=== PATIENT | male | born 1935 | race Caucasian/White ===

== ENCOUNTER → 2016-08-07 | Day surgery (SDC) | payer MEDICARE ==
[~2016-08-07] MED LIST: AMLO10 PO; ASPI325T PO; ENAL5TAB98 PO; EPINEPHrine HCL (1:10,000) 1 MG/10 ML SYRINGE ONE; FISH1000 PO; GLYB1TAB51 PO; LACTATED RINGER'S 1000 ML INJ 1,000 ML ONE; LIDOCAINE 1%/EPINEPHrine 1:100,000 SOLN 20 ML VIAL ONE; LORA10TA7 PO; MIDAZOLAM HCL 2 MG/2 ML VIAL ONE; NIAS10004 PO; NITROGLYCERIN 0.4 MG SL 25 TABS/BTL SL ONE; OMEP20CA5 PO; PIOG30 PO; PROPOFOL 500 MG/50 ML BTL IV ONE; TAB-TAB PO; Testosterone IM; VANCOMYCIN HCL 1000 MG VIAL ONE; VYTO10TA35 PO; [UNRECOGNIZED DRUG - CODE] PO; ceFAZolin INJ 1,000 MG VIAL ONE
[2016-08-07 12:36] LABS: CKMB 4.4 NG/ML (0.5-3.6)
--- NOTE | 2016-08-07 19:02 | MP ---
cc: ESSENCE AGUILERA DATE OF SURGERY 08/07/16 PREOPERATIVE DIAGNOSIS Infected hematoma left medial calf. POSTOPERATIVE DIAGNOSIS Infected hematoma left medial calf. PROCEDURE Incision, drainage and debridement of infected left calf hematoma. SURGEON Bri Aguilera MD ANESTHESIA Local MAC DESCRIPTION OF PROCEDURE With the patient in the supine position, IV sedation was induced, the left leg prepped with Betadine and draped in a sterile fashion. One gram of Ancef was administered intravenously and following a protocol time-out, the skin and subcutaneous tissue surrounding the necrotic eschar overlying the left mid calf hematoma was infiltrated with 0.5% Marcaine with epinephrine. The necrotic eschar was completely excised. Underlying organized thrombus and zero purulent fluid was thoroughly debrided off, the wound copiously irrigated. Cultures were obtained. The oval-shaped area approximately 3 x 4 cm of anteromedial tibial periosteum was necrosed exposing underlying dry osseous tissues. I telephoned both Dr. Dave Mehta and Dov Hale to discuss the exposed bone and best management options. They recommended Xeroform dressings with vacuum dressing overlying the wound. Thus, the exposed osseous tissue was covered with Xeroform and a vacuum dressing applied overall. It should be noted that the conclusion of procedure, the patient spontaneously developed severe hypotension. The hypotension did not respond to Rios-Synephrine but did respond to IV epinephrine and 100% oxygen Ambu assisted ventilation. 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 His blood pressure stabilized and the substernal discomfort resolved. I telephoned his draw tender, Carlos Espinosa, to discuss the hypo which is likely cardiac related. He had no signs of hypersensitivity reaction and nothing to suggest acute pulmonary embolism of specific etiology. We obtained a postoperative 12-lead EKG which was unchanged from that performed November of 2015. Cardiac enzymes were pending. The patient recovered in the recovery area without problems. He will follow up . MD BEE Arthur/ /4:33 PM /6:48 PM
== END | disposition home or self-care (01) ==
LOC: ESDC 06:53
PROVIDERS: ATTEND Surgery Vascular Surgery
DX: M79.81 Nontraumatic hematoma of soft tissue (principal); B95.2 Enterococcus as the cause of diseases classified elsewhere; B96.4 Proteus (mirabilis) (morganii) as the cause of diseases classified elsewhere
CPT/HCPCS: 00400; 27603; 36415; 82550; 82552; 87070; 87077; 87186; 87205; J0171; J0690; J2250; J3010; J3370; J7120

== ENCOUNTER → 2016-08-17 | Outpatient (CLI) | payer MEDICARE ==
[~2016-08-17] MED LIST changes: -EPINEPHrine HCL (1:10,000) 1 MG/10 ML SYRINGE ONE; -LACTATED RINGER'S 1000 ML INJ 1,000 ML ONE; -LIDOCAINE 1%/EPINEPHrine 1:100,000 SOLN 20 ML VIAL ONE; -MIDAZOLAM HCL 2 MG/2 ML VIAL ONE; -NITROGLYCERIN 0.4 MG SL 25 TABS/BTL SL ONE; -PROPOFOL 500 MG/50 ML BTL IV ONE; -VANCOMYCIN HCL 1000 MG VIAL ONE; -ceFAZolin INJ 1,000 MG VIAL ONE
== END ==
LOC: CLAB 13:25
PROVIDERS: ATTEND Urology
DX: R97.20 Elevated prostate specific antigen [PSA] (principal)
CPT/HCPCS: 36415; 84153

== ENCOUNTER → 2016-08-27 | Day surgery (SDC) | payer MEDICARE ==
[~2016-08-27] MED LIST changes: +ACETAMINOPHEN 1000 MG/100 ML VIAL IV ONE; +BACITRACIN IM FOR SOLN 50,000 UNIT VIAL ONE; +BUPIVACAINE/EPINEPHRINE 0.25% PF 30 ML VIAL ONE; +LACTATED RINGER'S 1000 ML INJ 1,000 ML ONE; +LIDOCAINE 1%/EPINEPHrine 1:100,000 SOLN 20 ML VIAL ONE; +MIDAZOLAM HCL 2 MG/2 ML VIAL ONE; +MINERAL OIL 10 ML VIAL ONE; +NEOMYCIN/POLYMYXIN/BACITRACIN OINT 15 GM TUBE ONE; +ONDANSETRON HCL 4 MG/2 ML VIAL IV PUSH ONE; +PROPOFOL 200 MG/20 ML AMP IV ONE; +SODIUM CHLORIDE 0.9% 20 ML VIAL ONE; +ceFAZolin INJ 1,000 MG VIAL ONE
--- NOTE | 2016-08-27 15:43 | TN ---
cc: DOV HALE M.D. DATE OF SURGERY: 08/27/2016 PREOPERATIVE DIAGNOSIS 1. Open wound with exposed tibial bone located on the left lower extremity. PROCEDURE 1. Debridement of a defect of 6 x 3 cm including the skin, subcutaneous tissue and muscle. 2. Bipedicle flap rotation to cover the defect of 6 x 3 cm reconstruction. 3. Split-thickness skin graft for donor defect of approximately 5 x 3 cm. SURGEON Dov Hale MD PEDIATRIC SPEECH LANGUAGE PATHOLOGIST Jennifer Gagnon MS III ESTIMATED BLOOD LOSS Minimal. ANESTHESIA LMA. I also utilized approximately 60 ccs of 1% lidocaine with epinephrine mixed with 0.25% Marcaine on a 2:1 ratio. DRAINS One 10 mm Reliavac. COMPLICATIONS None. PROCEDURE He was properly consented, marked, properly anesthetized. The skin was sterilized with Betadine solution and sterile draping applied. Pulse lavage was carried out of the area after proper debridement down to viable tissue including the skin, subcutaneous tissue and muscle, including periosteum. The defect is now is 6 x 3 cm. Cultures have been obtained and the bipedicle flap was elevated and rotated into the defect, secured in place utilizing 2-0 Monocryl suture and 2-0 Prolene suture on horizontal, vertical and double [id number] fashion. The donor site was grafted from skin graft obtained from the thigh 13,000th of an inch was properly obtained. The unused skin was returned to the donor site without any difficulties and covered with Xeroform gauze and Hypafix tape. The leg was covered with the donor site with a tie-over dressing utilizing [place] foam and Xeroform gauze, secured with surgical bonny. Everything was covered with Xeroform gauze, Sof-Rol as well as 4x4s and Usman. Good viability of tissue was noted at the end of the case. The patient was awakened, extubated in the operating room and transferred back to postanesthesia care unit in stable condition. No complications were appreciated. The patient tolerated the procedure fairly well. MD LAURIE Sims/LEELEE /2:02 PM /3:25 PM DANIELLA
== END | disposition home or self-care (01) ==
LOC: ESDC 11:07
PROVIDERS: ATTEND Plastic Surgery
DX: S81.802A Unspecified open wound, left lower leg, initial encounter (principal)
CPT/HCPCS: 86403; 87070; 87205; J0131; J0690; J2250; J2405; J3010; J7120

== ENCOUNTER → 2016-10-22 | Outpatient (CLI) | payer MEDICARE ==
[~2016-10-22] MED LIST changes: -ACETAMINOPHEN 1000 MG/100 ML VIAL IV ONE; -BACITRACIN IM FOR SOLN 50,000 UNIT VIAL ONE; -BUPIVACAINE/EPINEPHRINE 0.25% PF 30 ML VIAL ONE; -LACTATED RINGER'S 1000 ML INJ 1,000 ML ONE; -LIDOCAINE 1%/EPINEPHrine 1:100,000 SOLN 20 ML VIAL ONE; -MIDAZOLAM HCL 2 MG/2 ML VIAL ONE; -MINERAL OIL 10 ML VIAL ONE; -NEOMYCIN/POLYMYXIN/BACITRACIN OINT 15 GM TUBE ONE; -ONDANSETRON HCL 4 MG/2 ML VIAL IV PUSH ONE; -PROPOFOL 200 MG/20 ML AMP IV ONE; -SODIUM CHLORIDE 0.9% 20 ML VIAL ONE; -ceFAZolin INJ 1,000 MG VIAL ONE
[2016-10-22 11:16] LABS: HEMATOCRIT 36.2 % (39.0-51.0); MEAN CELL VOLUME 99.1 FL (80.0-100.0); MEAN CORPUSCULAR HEMOGLOBIN 34.9 PG (27.0-34.0); MEAN CORPUSCULAR HGB CONC 35.3 % (32.0-36.0); PLATELET COUNT 176 TH/MM3 (150-450); RED BLOOD COUNT 3.66 MIL/MM3 (4.50-5.90); REVIEW FLAG FINAL; WHITE BLOOD COUNT 5.8 TH/MM3 (4.0-11.0)
[2016-10-22 11:43] LABS: ALKALINE PHOSPHATASE 57 U/L (45-117); ALT (GPT) 20 U/L (12-78); HDL CHOLESTEROL 57.1 MG/DL (40.0-60.0); TOTAL BILIRUBIN ADULT 0.5 MG/DL (0.2-1.0)
[2016-10-22 11:48] LABS: ANION GAP 9 MEQ/L (5-15); AST (GOT) 15 U/L (15-37); BICARBONATE 28.1 MEQ/L (21.0-32.0); BLOOD UREA NITROGEN 10 MG/DL (7-18); CHLORIDE 105 MEQ/L (98-107); GLOMERULAR FILTRATION RATE 72 ML/MIN (>89); GLUCOSE,FASTING 107 MG/DL (74-99); LDL CHOLESTEROL 29 MG/DL (0-99); POTASSIUM 4.1 MEQ/L (3.5-5.1); SODIUM (NA) 142 MEQ/L (136-145)
[2016-10-22 16:04] LABS: HEMOGLOBIN A1a 1.1 %; HEMOGLOBIN A1b 1.8 %; HEMOGLOBIN P3 3.8 %
== END ==
LOC: CLAB 10:45
PROVIDERS: ATTEND Family Medicine
DX: I25.10 Atherosclerotic heart disease of native coronary artery without angina pectoris (principal); E11.9 Type 2 diabetes mellitus without complications; E78.5 Hyperlipidemia, unspecified; I48.91 Unspecified atrial fibrillation; I10 Essential (primary) hypertension
CPT/HCPCS: 36415; 80053; 80061; 83036; 84439; 84443; 85027

== ENCOUNTER → 2017-05-19 | Outpatient (CLI) | payer MEDICARE ==
[2017-05-19 12:16] LABS: HEMATOCRIT 32.9 % (39.0-51.0); MEAN CELL VOLUME 97.5 FL (80.0-100.0); MEAN CORPUSCULAR HEMOGLOBIN 33.3 PG (27.0-34.0); MEAN CORPUSCULAR HGB CONC 34.1 % (32.0-36.0); PLATELET COUNT 173 TH/MM3 (150-450); RED BLOOD COUNT 3.37 MIL/MM3 (4.50-5.90); RED CELL DISTRIBUTION WIDTH 15.6 % (11.6-17.2); REVIEW FLAG FINAL; WHITE BLOOD COUNT 5.5 TH/MM3 (4.0-11.0)
[2017-05-19 12:29] LABS: ANION GAP 8 MEQ/L (5-15); AST (GOT) 14 U/L (15-37); BICARBONATE 26.3 MEQ/L (21.0-32.0); BLOOD UREA NITROGEN 12 MG/DL (7-18); CHLORIDE 103 MEQ/L (98-107); GLOMERULAR FILTRATION RATE 63 ML/MIN (>89); GLUCOSE,FASTING 115 MG/DL (74-99); POTASSIUM 4.1 MEQ/L (3.5-5.1); SODIUM (NA) 137 MEQ/L (136-145)
[2017-05-19 12:30] LABS: ALT (GPT) 21 U/L (12-78)
[2017-05-19 12:40] LABS: ALKALINE PHOSPHATASE 60 U/L (45-117); HDL CHOLESTEROL 61.6 MG/DL (40.0-60.0); LDL CHOLESTEROL 59 MG/DL (0-99); TOTAL BILIRUBIN ADULT 0.3 MG/DL (0.2-1.0)
[2017-05-19 16:11] LABS: HEMOGLOBIN A1a 1.1 %; HEMOGLOBIN A1b 0.9 %; HEMOGLOBIN Ao 84.3 %; HEMOGLOBIN F 0.9 %; HEMOGLOBIN LA1C 2.2 %; HEMOGLOBIN P3 3.9 %
== END ==
LOC: CLAB 11:30
PROVIDERS: ATTEND Internal Medicine Gastroenterology
DX: I25.10 Atherosclerotic heart disease of native coronary artery without angina pectoris (principal); E11.9 Type 2 diabetes mellitus without complications; E78.5 Hyperlipidemia, unspecified; I48.91 Unspecified atrial fibrillation; I10 Essential (primary) hypertension
CPT/HCPCS: 36415; 80053; 80061; 83036; 84443; 85027

== ENCOUNTER → 2017-10-15 | Outpatient (CLI) | payer MEDICARE ==
[2017-10-15 10:26] LABS: AUTOMATED NEUTROPHIL # 2.3 TH/MM3 (1.8-7.7); BASOPHIL % 0.2 % (0.0-2.0); EOSINOPHIL # 0.1 TH/MM3 (0-0.4); EOSINOPHIL % 2.5 % (0.0-4.0); HEMATOCRIT 38.2 % (39.0-51.0); HEMOGLOBIN 13.5 GM/DL (13.0-17.0); LYMPH % 35.5 % (9.0-44.0); LYMPHOCYTE # 1.5 TH/MM3 (1.0-4.8); MEAN CELL VOLUME 102.1 FL (80.0-100.0); MEAN CORPUSCULAR HEMOGLOBIN 36.1 PG (27.0-34.0); MEAN CORPUSCULAR HGB CONC 35.4 % (32.0-36.0); MEAN PLATELET VOLUME 9.5 FL (7.0-11.0); MONO % 6.3 % (0.0-8.0); MONOCYTE # 0.3 TH/MM3 (0-0.9); NEUT % 55.5 % (16.0-70.0); PLATELET COUNT 154 TH/MM3 (150-450); RED BLOOD COUNT 3.74 MIL/MM3 (4.50-5.90); RED CELL DISTRIBUTION WIDTH 13.7 % (11.6-17.2); WHITE BLOOD COUNT 4.2 TH/MM3 (4.0-11.0)
[2017-10-15 10:53] LABS: ALBUMIN 4.1 GM/DL (3.4-5.0); AST (GOT) 21 U/L (15-37); BICARBONATE 28.2 MEQ/L (21.0-32.0); BLOOD UREA NITROGEN 19 MG/DL (7-18); CALCIUM 9.2 MG/DL (8.5-10.1); CHLORIDE 104 MEQ/L (98-107); CREATININE 1.11 MG/DL (0.60-1.30); GLOMERULAR FILTRATION RATE 63 ML/MIN (>89); GLUCOSE,FASTING 131 MG/DL (74-99); SODIUM (NA) 139 MEQ/L (136-145)
[2017-10-15 10:54] LABS: ALT (GPT) 27 U/L (12-78); CHOLESTEROL 138 MG/DL (120-200); TRIGLYCERIDES 57 MG/DL (42-150)
[2017-10-15 11:04] LABS: ALKALINE PHOSPHATASE 77 U/L (45-117); CHOLESTEROL/ HDL RATIO 2.15 RATIO; LDL CHOLESTEROL 63 MG/DL (0-99); TOTAL BILIRUBIN ADULT 0.7 MG/DL (0.2-1.0); TOTAL PROTEIN 7.9 GM/DL (6.4-8.2)
== END ==
LOC: CLAB 09:51
PROVIDERS: ATTEND Family Medicine
DX: R97.20 Elevated prostate specific antigen [PSA] (principal); E78.2 Mixed hyperlipidemia; E11.9 Type 2 diabetes mellitus without complications
CPT/HCPCS: 36415; 80053; 80061; 83036; 84153; 84443; 85025

== ENCOUNTER → 2018-01-17 | Outpatient (CLI) | payer MEDICARE ==
[2018-01-17 10:42] LABS: AUTOMATED NEUTROPHIL # 2.5 TH/MM3 (1.8-7.7); BASOPHIL % 0.2 % (0.0-2.0); EOSINOPHIL # 0.1 TH/MM3 (0-0.4); EOSINOPHIL % 1.4 % (0.0-4.0); HEMATOCRIT 36.5 % (39.0-51.0); HEMOGLOBIN 12.5 GM/DL (13.0-17.0); LYMPH % 33.5 % (9.0-44.0); LYMPHOCYTE # 1.4 TH/MM3 (1.0-4.8); MEAN CELL VOLUME 105.7 FL (80.0-100.0); MEAN CORPUSCULAR HEMOGLOBIN 36.3 PG (27.0-34.0); MEAN CORPUSCULAR HGB CONC 34.3 % (32.0-36.0); MEAN PLATELET VOLUME 9.5 FL (7.0-11.0); MONO % 5.7 % (0.0-8.0); MONOCYTE # 0.2 TH/MM3 (0-0.9); NEUT % 59.2 % (16.0-70.0); PLATELET COUNT 166 TH/MM3 (150-450); RED BLOOD COUNT 3.46 MIL/MM3 (4.50-5.90); RED CELL DISTRIBUTION WIDTH 13.9 % (11.6-17.2); WHITE BLOOD COUNT 4.2 TH/MM3 (4.0-11.0)
== END ==
LOC: CLAB 10:13
PROVIDERS: ATTEND Family Medicine
DX: K92.2 Gastrointestinal hemorrhage, unspecified (principal)
CPT/HCPCS: 36415; 85025